=== PATIENT | male | born 1970 | race American Indian/Alaskan Native ===

== ENCOUNTER 2019-08-11 22:59 | Emergency (ER) | payer MEDICARE ==
[2019-08-12 00:15] VITALS: BP 168/94
[2019-08-12] MEDS ORDERED: KETOROLAC 60 MG/2 ML INJ IM ONE (00:20)
[2019-08-12] MEDS ORDERED: oxyCODONE /ACETAMINOPHEN 5-325MG TAB PO ONE (00:20)
--- NOTE | 2019-08-12 00:31 | Emergency Department Report ---
ED Upper Extremity Inj HPI - General Chief Complaint: Extremity Problem,Nontraumatic Stated Complaint: LF SHOULDER PAIN Time Seen by Provider: 08/12/19 00:04 Source: patient, EMS Mode of arrival: Ambulatory Limitations: No Limitations - History of Present Illness Initial Comments: 48-year-old [id number]-rzrhfzfu male with a history of [id number]-arpkenz-khwttzmiy diabetes presents to the hospital planing of nontraumatic left shoulder pain x2 days. Patient woke up with the pain. He denies previous shoulder injury, heavy lifting, or exercising. He also denies fever. Pain is constant, rated 10/10 intensity, worse with movement and palpation. No alleviating factors reported. Patient denies chest pain or shortness of breath - Related Data Previous Rx's Medication Instructions Recorded Last Taken Type HYDROcodone/APAP 5-325 [[place] 1 each PO Q6HR PRN #14 tablet 08/12/19 Unknown Rx 5/325] Ibuprofen [Motrin] 800 mg PO Q8HR PRN #30 tablet 08/12/19 Unknown Rx Allergies Allergy/AdvReac Type Severity Reaction Status Date / Time No Known Allergies Allergy Unverified 10/21/15 10:34 ED Review of Systems ROS: Stated complaint: LF SHOULDER PAIN Other details as noted in HPI Comment: All other systems reviewed and negative ED Past Medical Hx - Past Medical History Previous Medical History?: Yes Hx Diabetes: Yes - Surgical History Past Surgical History?: No - Social History Smoking Status: Former Smoker Substance Use Type: None - Medications Home Medications: Home Medications Medication Instructions Recorded Confirmed Last Taken Type HYDROcodone/APAP 5-325 [[place] 1 each PO Q6HR PRN #14 tablet 08/12/19 Unknown Rx 5/325] Ibuprofen [Motrin] 800 mg PO Q8HR PRN #30 tablet 08/12/19 Unknown Rx ED Physical Exam - General Limitations: No Limitations - Other Other exam information: General: No acute distress Head: Atraumatic Eyes: normal appearance ENT: Moist mucous membranes Neck: Normal appearance, no midline tenderness Chest: Clear to auscultation bilaterally CV: Regular rate and rhythm Abdomen: Soft, normal bowel sounds, nontender, nondistended, no rebound or guarding Back: Normal inspection Extremity: Normal inspection, no warmth or erythema to shoulder. Generalized left shoulder anterior, lateral, and posterior tenderness. Pain with movement of shoulder in any direction. Shoulder is held and an abducted and internally rotated position. Neuro: Alert O x 3, no facial asymmetry, speech clear, no gross motor sensory deficit Psych: Appropriate behavior Skin: No rash ED Course Vital Signs 08/11/19 08/12/19 23:09 00:14 Temperature 98.3 F Pulse Rate 99 H 88 Respiratory 20 19 Rate Blood Pressure 188/102 Blood Pressure 168/94 [Right] O2 Sat by Pulse 97 97 Oximetry ED Medical Decision Making - Radiology Data Radiology results: report reviewed LEFT SHOULDER 3 VIEW(S) INDICATION / CLINICAL INFORMATION: left shoulder pain (non traumatic) COMPARISON: None available. FINDINGS: BONES / JOINT(S): No acute fracture or subluxation. Moderate acromioclavicular degenerative arthrosis. SOFT TISSUES: No significant abnormality. ADDITIONAL FINDINGS: None. - Medical Decision Making Low suspicion for infection given lack of fever. Differential includes tendinitis versus bursitis. X-ray unremarkable. Patient treated with Percocet, Toradol, and Decadron in the ED. Sling provided. Patient's BP noted to be elevated, patient denies history of hypertension and therefore may be pain induced. Outpatient follow-up for BP check will be advised. Orthopedic follow- up regarding shoulder advised - Differential Diagnosis Fracture, contusion, sprain, bursitis, tendinitis Critical Care Time: No Critical care attestation.: If time is entered above; I have spent that time in minutes in the direct care of this critically ill patient, excluding procedure time. ED Disposition Clinical Impression: Left shoulder pain, Bursitis of left shoulder, Acromioclavicular arthrosis Disposition: TO HOME OR SELFCARE Is pt being admited?: No Does the pt Need Aspirin: No Condition: Stable Instructions: Shoulder Bursitis (ED) Additional Instructions: Take the medication as prescribed. Follow-up with your doctor or doctor/clinic provided. Return if symptoms worsen as indicated by your discharge instructions. Prescriptions: Ibuprofen [Motrin] 800 mg PO Q8HR PRN #30 tablet PRN Reason: Pain, Moderate (4-6) HYDROcodone/APAP 5-325 [[place] 5/325] 1 each PO Q6HR PRN #14 tablet PRN Reason: Pain Referrals: KANNAN WEINER MD [Primary Care Provider] - 3-5 Days PIERO STYLES MD [Staff Physician] - 3-5 Days (primary care doctor ) MIKIE MCCLAIN MD [Staff Physician] - 3-5 Days (orthopedic doctor ) Time of Disposition: 01:11
--- NOTE | 2019-08-12 01:08 | XRay Report ---
LEFT SHOULDER 3 VIEW(S) INDICATION / CLINICAL INFORMATION: left shoulder pain (non traumatic) COMPARISON: None available. FINDINGS: BONES / JOINT(S): No acute fracture or subluxation. Moderate acromioclavicular degenerative arthrosis . SOFT TISSUES: No significant abnormality. ADDITIONAL FINDINGS: None. Signer Name: Lilly Damon MD Signed: 08/12/2019 1:04 AM Workstation Name: [id number]
[2019-08-12] MEDS ORDERED: dexAMETHasone 20 MG/5 ML VIAL IM ONE (01:10)
== END 2019-08-12 01:30 | disposition home or self-care (01) ==
LOC: ED 22:59
DX: M75.52 Bursitis of left shoulder (principal); M19.012 Primary osteoarthritis, left shoulder; E11.9 Type 2 diabetes mellitus without complications; Z87.891 Personal history of nicotine dependence
CPT/HCPCS: 73030; 96372; 99284; J1100; J1885

== ENCOUNTER 2020-12-11 23:13 | Emergency (ER) | payer MEDICARE ==
[2020-12-12 01:01] VITALS: BP 140/87
--- NOTE | 2020-12-12 07:19 | Emergency Department Report ---
HPI - General Chief Complaint: Allergic Reaction Time Seen by Provider: 12/12/20 07:11 ED Past Medical Hx - Past Medical History Hx Diabetes: Yes - Social History Smoking Status: Former Smoker Substance Use Type: None - Medications Home Medications: Home Medications Medication Instructions Recorded Confirmed Last Taken Type HYDROcodone/APAP 5-325 [[place] 1 each PO Q6HR PRN #14 tablet 08/12/19 Unknown Rx 5/325] Ibuprofen [Motrin] 800 mg PO Q8HR PRN #30 tablet 08/12/19 Unknown Rx ED Review of Systems ROS: Stated complaint: SWELLING OF UPPER LIP Other details as noted in HPI Physical Exam - Physical Exam Vital Signs: Vital Signs 12/12/20 00:58 Temperature 99.0 F Pulse Rate 95 H Respiratory 18 Rate Blood Pressure 140/87 O2 Sat by Pulse 97 Oximetry ED Course Vital Signs 12/12/20 00:58 Temperature 99.0 F Pulse Rate 95 H Respiratory 18 Rate Blood Pressure 140/87 O2 Sat by Pulse 97 Oximetry Critical care attestation.: If time is entered above; I have spent that time in minutes in the direct care of this critically ill patient, excluding procedure time. ED Disposition Condition: Stable Referrals: PRIMARY CARE [Primary Care Provider] - 3-5 Days
--- NOTE | 2020-12-12 07:25 | Emergency Department Report ---
ED ENT HPI - General Chief complaint: Allergic Reaction Stated complaint: SWELLING OF UPPER LIP Time Seen by Provider: 12/12/20 07:11 Source: EMS Mode of arrival: Ambulatory Limitations: No Limitations - History of Present Illness Initial comments: 50-year-old -German male presents to the emergency room complaining of swollen upper lip for 3 days. Patient states that he just woke up like this. Patient denies any allergies to foods medicine. Patient denies any tongue swelling no difficulty swallowing no feeling of throat been closed. Patient is taking nothing for symptoms. He does have a primary care provider Dr. Campbell at [facility] in [place]. Onset/Timin -: days(s) Location: upper lip Consistency: constant Improves with: none Worsens with: none Context- Dental: poor dental care Associated Symptoms: denies: fever, cough, gum swelling, pain with swallowing, sore throat, tinnitus, hearing loss, discharge from ear, rhinorrhea, other - Related Data Previous Rx's Medication Instructions Recorded Last Taken Type HYDROcodone/APAP 5-325 [[place] 1 each PO Q6HR PRN #14 tablet 08/12/19 Unknown Rx 5/325] Ibuprofen [Motrin] 800 mg PO Q8HR PRN #30 tablet 08/12/19 Unknown Rx Amoxicillin/K Clav Tab [Augmentin 1 tab PO Q12HR 10 Days #20 tab 12/12/20 Unkn own Rx 875 mg] Chlorhexidine Mouthwash [Peridex] 15 ml MM BID 10 Days #1 bottle 12/12/20 Unknown Rx Allergies Allergy/AdvReac Type Severity Reaction Status Date / Time No Known Allergies Allergy Unverified 12/12/20 01:05 ED Dental HPI - General Chief complaint: Allergic Reaction Stated complaint: SWELLING OF UPPER LIP Time Seen by Provider: 12/12/20 07:11 Source: EMS Mode of arrival: Ambulatory Limitations: No Limitations - Related Data Previous Rx's Medication Instructions Recorded Last Taken Type HYDROcodone/APAP 5-325 [[place] 1 each PO Q6HR PRN #14 tablet 08/12/19 Unknown Rx 5/325] Ibuprofen [Motrin] 800 mg PO Q8HR PRN #30 tablet 08/12/19 Unknown Rx Amoxicillin/K Clav Tab [Augmentin 1 tab PO Q12HR 10 Days #20 tab 12/12/20 Unknown Rx 875 mg] Chlorhexidine Mouthwash [Peridex] 15 ml MM BID 10 Days #1 bottle 12/12/20 Unknown Rx Allergies Allergy/AdvReac Type Severity Reaction Status Date / Time No Known Allergies Allergy Unverified 12/12/20 01:05 ED Review of Systems ROS: Stated complaint: SWELLING OF UPPER LIP Other details as noted in HPI Comment: All other systems reviewed and negative ED Past Medical Hx - Past Medical History Hx Diabetes: Yes - Social History Smoking Status: Former Smoker Substance Use Type: None - Medications Home Medications: Home Medications Medication Instructions Recorded Confirmed Last Taken Type HYDROcodone/APAP 5-325 [[place] 1 each PO Q6HR PRN #14 tablet 08/12/19 Unknown Rx 5/325] Ibuprofen [Motrin] 800 mg PO Q8HR PRN #30 tablet 08/12/19 Unknown Rx Amoxicillin/K Clav Tab [Augmentin 1 tab PO Q12HR 10 Days #20 tab 12/12/20 Unknown Rx 875 mg] Chlorhexidine Mouthwash [Peridex] 15 ml MM BID 10 Days #1 bottle 12/12/20 Unknown Rx ED Physical Exam - General Limitations: No Limitations General appearance: alert, in no apparent distress - Head Head exam: Present: atraumatic, normocephalic - Eye Eye exam: Present: normal appearance - Expanded ENT Exam Expanded Mouth exam: Present: other (Upper lip swollen when I lifted up to evaluate serosanguineous pus expressed out.) Teeth exam: Present: gingival enlargement - Neck Neck exam: Present: normal inspection, full ROM. Absent: lymphadenopathy - Respiratory Respiratory exam: Absent: accessory muscle use - Cardiovascular Cardiovascular Exam: Present: regular rate - Extremities Exam Extremities exam: Present: normal inspection - Back Exam Back exam: Present: normal inspection - Neurological Exam Neurological exam: Present: alert, oriented X3, normal gait - Psychiatric Psychiatric exam: Present: normal affect, normal mood - Skin Skin exam: Present: warm, dry, intact, normal color. Absent: rash ED Course Vital Signs 12/12/20 00:58 Temperature 99.0 F Pulse Rate 95 H Respiratory 18 Rate Blood Pressure 140/87 O2 Sat by Pulse 97 Oximetry ED Medical Decision Making - Medical Decision Making 50-year-old -German male presents to the emergency room complaining of swollen upper lip for 3 days. Patient states that he just woke up like this. Patient denies any allergies to foods medicine. Patient denies any tongue swelling no difficulty swallowing no feeling of throat been closed. Patient is taking nothing for symptoms. He does have a primary care provider Dr. Campbell at [facility] in [place]. Upon my examination of patient's upper lip when I lifted it serosanguineous pus started to ooze from the upper lip. Patient will be treated for dental abscess with Augmentin 875 mg p.o. twice daily for 10 days and a referral to a dentist. Instructed patient can take Tylenol or ibuprofen if there is any pain. Critical care attestation.: If time is entered above; I have spent that time in minutes in the direct care of this critically ill patient, excluding procedure time. ED Disposition Clinical Impression: Mouth abscess Disposition: TO HOME OR SELFCARE Is pt being admited?: No Does the pt Need Aspirin: No Condition: Stable Instructions: Dental Abscess, [id number] Additional Instructions: Complete antibiotics as prescribed. Use mouthwash as prescribed. You can take Tylenol or ibuprofen for any pain. Follow-up with a dentist I did list several below for your convenience. Prescriptions: Amoxicillin/K Clav Tab [Augmentin 875 mg] 1 tab PO Q12HR 10 Days #20 tab Chlorhexidine Mouthwash [Peridex] 15 ml MM BID 10 Days #1 bottle Referrals: PRIMARY CARE, [Primary Care Provider] - 3-[address] [facility] [Outside] - 3-5 Days [facility] [Outside] - 3-5 Days Time of Disposition: 07:25
== END 2020-12-12 07:30 | disposition home or self-care (01) ==
LOC: ED 23:13
DX: K12.2 Cellulitis and abscess of mouth (principal); E11.9 Type 2 diabetes mellitus without complications; Z87.891 Personal history of nicotine dependence; Z79.1 Long term (current) use of non-steroidal anti-inflammatories (NSAID); Z79.891 Long term (current) use of opiate analgesic; Z79.899 Other long term (current) drug therapy
CPT/HCPCS: 99282; 99283